=== PATIENT | male | born 1985 | race African-American/Black ===

== ENCOUNTER 2017-10-19 15:30 | Emergency (ER) | payer OTHER ==
--- NOTE | 2017-10-19 15:46 | PDOC ---
Rapid Medical Evaluation Time Seen by Provider: 10/19/17 15:40 Medical Evaluation: Allergies Allergy/AdvReac Type Severity Reaction Status Date / Time No Known Allergies Allergy Verified 10/19/17 15:40 10/19/17 15:40 The patient presents with a chief complaint of: L lower abdominal pain for a week. Sitting makes the pain worse. 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 No fevers/ chills. Denies n/v/d, however notices increased bowel movements. Denies blood in the stool. Feels like a shooting pain that radiates to the back. I have performed a brief in-person evaluation of this patient; Pertinent physical exam findings: ambulatory, in no respiratory distress. TTP LLQ. Abdomen otherwise soft, non-distended with no rebound or guarding I have ordered the following: CBC, CMP, PT/INR, Lipase The patient will proceed to the ED for further evaluation.
[2017-10-19 15:47] VITALS: BMI 23.0
[2017-10-19] MEDS ORDERED: IBUPROFEN 600 MG TABLET (FP) PO ONE ×2 (16:24→16:36)
--- NOTE | 2017-10-19 16:27 | PDOC ---
History of Present Illness - General History Source: Patient Exam Limitations: No Limitations - History of Present Illness Initial Comments: 10/19/17 18:59 The patient is a 31 year old male with no significant PMH who presents to the emergency department with LLQ pain for approximately 1 week. The patient describes the LLQ pain as intermittent, sharp, lasting for seconds at a time, with radiation to the L lower back and worse with sudden movement or driving. The patient denies exacerbation of LLQ pain after food intake. The patient states he plays basketball and typically gets groin pain but denies groin pain today. The patient denies family Hx of kidney stones. The patient denies abdominal surgeries in the past. The patient reports he has not taken any pain meds. The patient denies groin pain, testicular pain, chest pain, shortness of breath , headache and dizziness. Denies fever, chills, nausea, vomit, diarrhea and constipation. Denies dysuria, frequency, urgency and hematuria. Allergies: NKA Past surgical history: None reported. Social history: No reported alcohol, drug or cigarette use. PCP: Dr. Webb <Dariana Gomez - Last Filed: 10/19/17 18:58> <Immanuel Kelly - Last Filed: 10/21/17 05:14> - General Chief Complaint: Pain Stated Complaint: ABDOMINAL PAIN Time Seen by Provider: 10/19/17 15:40 Past History <Dariana Gomez - Last Filed: 10/19/17 18:58> - Past Medical History COPD: No Disorders: Yes (? renal problem) Other medical history: DENIES. - Surgical History Abdominal Surgery: Yes (HERNIA) - Immunization History Immunization Up to Date: Yes - Suicide/Smoking/Psychosocial Hx Smoking Status: No Smoking History: Never smoked Number of Cigarettes Smoked Daily: 0 Hx Alcohol Use: No Drug/Substance Use Hx: No <Immanuel Kelly - Last Filed: 10/21/17 05:14> - Past Medical History Allergies/Adverse Reactions: Allergies Allergy/AdvReac Type Severity Reaction Status Date / Time No Known Allergies Allergy Verified 10/19/17 15:40 Home Medications: Ambulatory Orders No Home Medications 0 dose .ROUTE UTDICT 04/30/12 Doxycycline Monohydrate [Doxycycline] 100 mg PO BID #20 tablet 10/24/12 Naproxen [Naprosyn -] 500 mg PO BID #14 tablet 10/24/12 Acetaminophen [Tylenol] 650 mg PO Q4H PRN #20 tablet 08/08/16 Ondansetron HCl [Zofran] 4 mg PO Q6H PRN #15 tablet 08/08/16 Ranitidine HCl [Zantac] 150 mg PO BID PRN #14 tablet 08/08/16 Review of Systems - Review of Systems Able to Perform ROS?: Yes Comments:: 10/19/17 18:59 CONSTITUTIONAL: No reported: Fever, Chills, Diaphoresis, Generalized Weakness, Malaise, Loss of Appetite HEENT: No reported: Rhinorrhea, Nasal Congestion, Throat Pain, Throat Swelling, Difficulty Swallowing, Mouth Swelling, Ear Pain, Eye Pain, Visual Changes CARDIOVASCULAR: No reported: Chest Pain, Syncope, Palpitations, Irregular Heart Rate, Lightheadedness, Peripheral Edema RESPIRATORY: No reported: Cough, Shortness of Breath, SOB with Exertion, Orthopnea, Wheezing , Stridor, Hemoptysis GASTROINTESTINAL: Reported: (+) LLQ pain. No reported: Abdominal Distension, Nausea, Vomiting, Diarrhea, Constipation, Melena, Hematochezia GENITOURINARY: No reported: Dysuria, Frequency, Urgency, Hesitancy, Flank Pain, Genital Pain MUSCULOSKELETAL: No reported: Myalgia, Arthralgia, Joint Swelling, Back pain, Neck Pain SKIN: No reported: Rash, Itching, Pallor HEMEATOLOGIC/IMMUNOLOGIC: No reported: Easy Bleeding, Easy Bruising, Lymphadenopathy, Frequent infections ENDOCRINE: No reported: Unexplained Weight Gain, Unexplained Weight Loss, Heat Intolerance , Cold Intolerance NEUROLOGIC: No reported: Headache, Focal Weakness, Paresthesias, Vertigo, Lightheadedness, Unsteady Gait, Seizure, Mental Status Changes, Incontinence PSYCHIATRIC: No reported: Anxiety, Depression <Dariana Gomez - Last Filed: 10/19/17 18:58> *Physical Exam - Vital Signs Last Vital Signs Temp Pulse Resp BP Pulse Ox 98.3 F 58 L 19 150/87 100 10/19/17 15:40 10/19/17 15:40 10/19/17 15:40 10/19/17 15:40 10/19/17 15:40 - Physical Exam Comments: 10/19/17 18:59 GENERAL: The patient is awake, alert, and fully oriented, Nontoxic - in no acute distress. HEAD: Normocephalic, atraumatic. EYES: extraocular movements intact, sclera anicteric, conjunctiva clear. ENT: Normal voice, Moist mucous membranes. NECK: Normal range of motion, supple LUNGS: Breath sounds equal, clear to auscultation bilaterally. No wheezes, no rhonchi, no rales. HEART: Regular rate and rhythm, without murmur, rub or gallop. ABDOMEN: Soft, nontender, normoactive bowel sounds. No guarding, no rebound.No CVA tenderness EXTREMITIES: Normal range of motion, no edema. No clubbing or cyanosis. No cords, erythema, or tenderness. NEUROLOGICAL: No facial assymetry, Normal speech, PSYCH: Normal mood, normal affect. SKIN: Warm, Dry, normal turgor <Dariana Gomez - Last Filed: 10/19/17 18:58> - Vital Signs Last Vital Signs Temp Pulse Resp BP Pulse Ox 98.3 F 58 L 19 150/87 100 10/19/17 15:40 10/19/17 15:40 10/19/17 15:40 10/19/17 15:40 10/19/17 15:40 <Leticia,Immanuel - Last Filed: 10/21/17 05:14> ED Treatment Course - LABORATORY CBC & Chemistry Diagram: 10/19/17 16:10 10/19/17 16:10 - ADDITIONAL ORDERS Additional order review: Laboratory Results 10/19/17 10/19/17 10/19/17 16:13 16:10 16:10 PT with INR 10.50 INR 0.93 Sodium 140 Potassium 4.0 Chloride 104 Carbon Dioxide 27 Anion Gap 9 BUN 18 Creatinine 1.1 Creat Clearance w eGFR > 60 Random Glucose 107 H D Calcium 8.9 Total Bilirubin 0.3 D AST 39 H D ALT 32 D Alkaline Phosphatase 55 Total Protein 7.9 Albumin 4.1 Lipase Urine Color Straw Urine Appearance Clear Urine pH 6.0 Ur Specific [place] 1.018 Urine Protein Negative Urine Glucose (UA) Negative Urine Ketones Negative Urine Blood Negative Urine Nitrite Negative Urine Bilirubin Negative Urine Urobilinogen Negative Ur Leukocyte Esterase Negative 10/19/17 16:00 PT with INR INR Sodium Potassium Chloride Carbon Dioxide Anion Gap BUN Creatinine Creat Clearance w eGFR Random Glucose Calcium Total Bilirubin AST ALT Alkaline Phosphatase Total Protein Albumin Lipase 168 Urine Color Urine Appearance Urine pH Ur Specific [place] Urine Protein Urine Glucose (UA) Urine Ketones Urine Blood Urine Nitrite Urine Bilirubin Urine Urobilinogen Ur Leukocyte Esterase 10/19/17 16:10 RBC 4.69 MCV 92.1 MCHC 34.6 RDW 13.3 MPV 9.6 Neutrophils % 66.2 D Lymphocytes % 26.4 D Monocytes % 6.3 Eosinophils % 0.7 Basophils % 0.4 D - Medications Given in the ED: ED Medications Discontinued Medications Generic Name Dose Route Start Last Admin Trade Name Evgeny PRN Reason Stop Dose Admin Ibuprofen 600 mg 10/19/17 16:24 10/19/17 16:42 Motrin - PO 10/19/17 16:25 600 mg ONCE ONE Administration <Dariana Gomez - Last Filed: 10/19/17 18:58> - LABORATORY CBC & Chemistry Diagram: 10/19/17 16:10 10/19/17 16:10 <Immanuel Kelly - Last Filed: 10/21/17 05:14> Medical Decision Making - Medical Decision Making 10/19/17 16:25 31y M no significant past medical problems presenting with a complaint of intermittent left lower quadrant pain 1 week, the pain is sharp, intermittent lasting for seconds at a time before resolving without any associated fever, chills, nausea, vomiting, urinary symptoms, diarrhea. The patient does note that sometimes he gets worse when he is moving around or driving. The patient states he plays a lot of basketball. no radiation to groin. On exam the patient appears well, has a soft nontender abdomen with no CVA tenderness. Differential for the patient's symptoms includes possible muscle skeletal pain versus kidney stones No signs or symptoms suggestive of testicular torsion Will obtain blood work, UA motrin for pain A portion of this note was documented by scribe services under my direction. I have reviewed the details of the note, within reason, and agree with the documentation with the following case summary and management plan written by me 10/19/17 19:05 labs reviewed neg ua neg pt feeling improved suspect likely msk in nature will dc with pmd fu and supportive care reutrn precautions were discussed I discussed the physical exam findings, ancillary test results and final diagnoses with the patient. I answered all of the patient's questions. The patient was satisfied with the care received and felt comfortable with the discharge plan and treatment plan. The patient will call their primary care physician within 24 hours to arrange follow-up and will return to the Emergency Department with any new, persistent or worsening symptoms. <Immanuel Kelly - Last Filed: 10/21/17 05:14> *DC/Admit/Observation/Transfer - Attestations Scribe Attestion: 10/19/17 18:59 Documentation prepared by Dariana Gomez, acting as medical sales associate for Immanuel Kelly MD. <Dariana Gomez - Last Filed: 10/19/17 18:58> - Discharge Dispostion Admit: No <Immanuel Kelly - Last Filed: 10/21/17 05:14> Diagnosis at time of Disposition: Flank pain - Discharge Dispostion Disposition: HOME Condition at time of disposition: Improved - Referrals Referrals: Lux Webb [Primary Care Provider] - - Patient Instructions Printed Discharge Instructions: DI for Flank Pain Additional Instructions: Return to the emergency department immediately with ANY new, persistent or worsening symptoms including worsening abdominal pain, fevers, inability to tolerate oral intake, chest pain, shortness of breath or any other concerns. I suspect that you're pain may be due to muscle strain take Motrin or Tylenol as needed. Avoid any sports or physical activity until is feeling better Stay well hydrated. You MUST call and follow up with your doctor tomorrow. Your emergency department visit is not complete without a followup with your doctor for reevaluation. Please make sure your doctor reviews the results of your emergency evaluation. Print Language: ALBANIAN - Post Discharge Activity
[2017-10-19 16:37] LABS: BASO % 0.4 % (0-2.0); EOS % 0.7 % (0-4.5); HEMATOCRIT 43.2 % (35.4-49); LYMPH % 26.4 % (8-40); MCH 31.9 pg (25.7-33.7); MCHC 34.6 g/dl (32.0-35.9); MEAN CELL VOLUME 92.1 fl (80-96); MEAN PLT VOLUME 9.6 fl (7.5-11.1); MONO % 6.3 % (3.8-10.2); NEUT % 66.2 % (42.8-82.8); PLATELET COUNT 184 K/MM3 (134-434); RBC 4.69 M/mm3 (4.00-5.60); RDW 13.3 % (11.9-15.9); WHITE BLOOD COUNT 7.2 K/mm3 (4.0-10.0)
[2017-10-19 16:48] LABS: URINE APPEARANCE CLEAR; URINE BILIRUBIN NEGATIVE (<2.0 mg/dL); URINE BLOOD NEGATIVE (NEGATIVE); URINE COLOR STRAW; URINE GLUCOSE (UA) NEGATIVE (NEGATIVE); URINE KETONE NEGATIVE (NEGATIVE); URINE LEUK ESTERASE NEGATIVE (NEGATIVE); URINE NITRITE NEGATIVE (NEGATIVE); URINE PROTEIN NEGATIVE (NEGATIVE); URINE UROBILINOGEN NEGATIVE mg/dL (0.2-1.0)
[2017-10-19 17:09] LABS: INR 0.93 (0.82-1.09); PROTHROMBIN TIME (PATIENT) 10.5 SEC (9.98-11.88)
[2017-10-19 18:25] LABS: ALBUMIN 4.1 g/dl (3.4-5.0); ANION GAP 9 (8-16); BLOOD UREA NITROGEN 18 mg/dL (7-18); CALCIUM 8.9 mg/dL (8.5-10.1); CHLORIDE 104 mmol/L (98-107); CO2 27 mmol/L (21-32); CREATININE 1.1 mg/dL (0.7-1.3); GLUCOSE,RANDOM 107 mg/dL (74-106); SGOT/AST 39 U/L (15-37); SODIUM 140 mmol/L (136-145)
[2017-10-19 18:29] LABS: ALK PHOS 55 U/L (45-117); BILIRUBIN,TOTAL 0.3 mg/dL (0.2-1.0); SGPT/ALT 32 U/L (12-78); TOT PROT 7.9 g/dl (6.4-8.2)
[2017-10-19 19:14] VITALS: BP 126/78; PULSE 72; TEMP 98.4
== END 2017-10-19 19:05 | disposition home or self-care (01) ==
LOC: JER 15:30
DX: R10.32 Left lower quadrant pain (principal)
CPT/HCPCS: 36415; 80053; 81003; 83690; 85025; 85610; 87086; 99284-25

== ENCOUNTER 2018-09-06 08:04 | Emergency (ER) | payer OTHER ==
[2018-09-06 08:28] VITALS: BMI 23.7
--- NOTE | 2018-09-06 08:46 | PDOC ---
History of Present Illness - General History Source: Patient Exam Limitations: No Limitations <Marialuisa Summers - Last Filed: 09/06/18 12:21> <Maria Isabel Arriola - Last Filed: 09/08/18 22:44> - General Chief Complaint: Pain, Acute Stated Complaint: LF SIDE SWOLLEN GROIN Time Seen by Provider: 09/06/18 08:28 Past History - Past Medical History COPD: No Disorders: Yes (? renal problem) - Surgical History Abdominal Surgery: Yes (HERNIA) - Immunization History Immunization Up to Date: Yes - Suicide/Smoking/Psychosocial Hx Smoking Status: No Smoking History: Never smoked Number of Cigarettes Smoked Daily: 0 Information on smoking cessation initiated: No Hx Alcohol Use: No Drug/Substance Use Hx: No <Marialuisa Summers - Last Filed: 09/06/18 12:21> <Maria Isabel Arriola - Last Filed: 09/08/18 22:44> - Past Medical History Allergies/Adverse Reactions: Allergies Allergy/AdvReac Type Severity Reaction Status Date / Time No Known Allergies Allergy Verified 10/19/17 15:40 Home Medications: Ambulatory Orders No Home Medications 0 dose .ROUTE UTDICT 04/30/12 Doxycycline Monohydrate [Doxycycline] 100 mg PO BID #20 tablet 10/24/12 Naproxen [Naprosyn -] 500 mg PO BID #14 tablet 10/24/12 Acetaminophen [Tylenol] 650 mg PO Q4H PRN #20 tablet 08/08/16 Ondansetron HCl [Zofran] 4 mg PO Q6H PRN #15 tablet 08/08/16 Ranitidine HCl [Zantac] 150 mg PO BID PRN #14 tablet 08/08/16 *Physical Exam - Vital Signs Last Vital Signs Temp Pulse Resp BP Pulse Ox 98.5 F 65 16 138/81 99 09/06/18 08:25 09/06/18 08:25 09/06/18 08:25 09/06/18 08:25 09/06/18 08:25 - Physical Exam General Appearance: No: Apparent Distress Gastrointestinal/Abdominal: positive: Normal Bowel Sounds, Soft. negative: Tender, Distended, Guarding, Rebound Male Genitalia: positive: other (+L inguinal lymphadenopathy, no erythema, no rashes or other lesions noted). negative: discharge, testicular tenderness, testicular mass, epididymus tender, hernia Integumentary: positive: Normal Color Neurologic: positive: Alert, Normal Mood/Affect <Marialuisa Summers - Last Filed: 09/06/18 12:21> - Vital Signs Last Vital Signs Temp Pulse Resp BP Pulse Ox 98.5 F 65 16 138/81 99 09/06/18 08:25 09/06/18 08:25 09/06/18 08:25 09/06/18 08:25 09/06/18 08:25 <Maria Isabel Arriola - Last Filed: 09/08/18 22:44> Moderate Sedation - Procedure Monitoring Vital Signs: Procedure Monitoring Vital Signs Temperature 98.5 F 09/06/18 08:25 Pulse Rate 65 09/06/18 08:25 Respiratory Rate 16 09/06/18 08:25 Blood Pressure 138/81 09/06/18 08:25 O2 Sat by Pulse Oximetry (%) 99 09/06/18 08:25 <Marialuisa Summers - Last Filed: 09/06/18 12:21> - Procedure Monitoring Vital Signs: Procedure Monitoring Vital Signs Temperature 98.5 F 09/06/18 08:25 Pulse Rate 65 09/06/18 08:25 Respiratory Rate 16 09/06/18 08:25 Blood Pressure 138/81 09/06/18 08:25 O2 Sat by Pulse Oximetry (%) 99 09/06/18 08:25 <Maria Isabel Arriola - Last Filed: 09/08/18 22:44> ED Treatment Course - ADDITIONAL ORDERS Additional order review: Laboratory Results 09/06/18 09:24 Urine Color Ltyellow Urine Appearance Clear Urine pH 6.0 Ur Specific [place] 1.024 Urine Protein Negative Urine Glucose (UA) Negative Urine Ketones Negative Urine Blood Negative Urine Nitrite Negative Urine Bilirubin Negative Urine Urobilinogen 2.0 Ur Leukocyte Esterase Negative <Maria Isabel Arriola - Last Filed: 09/08/18 22:44> Medical Decision Making - Medical Decision Making 32 y/o M hx of L inguinal hernia s/p mesh (around 10 years ago) presents with swollen lymph nodes along left side of groin x 1.5 weeks. Mentions around 3 weeks ago, he had "bump" to penis for which he was seen at [facility]. He had full STD workup at that time which was negative; mentions being placed on ?antibiotics and now the bump has healed. Is sexually active with 1 partner for the past 5 months. Denies hx of STDs. Denies fever, abd pain, n/v, testicular pain, penile discharge, dysuria, other rashes to genital region Unilateral inguinal lymphadenopathy Consider STD? Plan: GC test, RPR, HIV, UA 09/06/18 08:46 Patient neg for syphilis and HIV UA negative Ultrasound confirms lymphadenopathy Patient mentions finishing course of Doxycline Patient also covered with Ceftriaxone and Flagyl Advised f/u with his PCP Stable for dc 09/06/18 12:21 <Marialuisa Summers - Last Filed: 09/06/18 12:21> - Medical Decision Making The patient was seen and evaluated in conjunction with midlevel provider under my direct supervision, ancillary studies were reviewed. I agree with the plan as outlined by Marialuisa Summers. HPI, workup/dispo as outlined. VS wnl. of note, pt has had left groin adenopathy and pain x 1 week; previously seen at [facility] ~2 weeks ago for left scrotal lesions, suspected to be infectious and placed on doxycycline x 2 weeks, almost done. +sexually active no urethral drainage. no testicular tenderness. normal lie. abdomen soft and nontender. +left groin mobile and tender inguinal LAD; inguinal hernia surg scar present. normal penis, no ulcers or lesions already finishing doxycycline. considering Chlamydia, gonorrhea, HIV, syphilis, lymph-gran venerem and STI - extend coverage with IM Ceftriaxone x1 and flagyl. Ultrasound soft tissue_confirms groin adenpathy. however, no scrotal or testicular abnormalities on exam to warrant US> DC with PCP followup, safe sex practices, finish the medications and the one time dose of meds here. pt made aware of impression and plan, agreeable 09/06/18 10:54 09/08/18 22:44 <Maria Isabel Arriola - Last Filed: 09/08/18 22:44> *DC/Admit/Observation/Transfer - Discharge Dispostion Decision to Admit order: No <Marialuisa Summers - Last Filed: 09/06/18 12:21> <Maria Isabel Arriola - Last Filed: 09/08/18 22:44> Diagnosis at time of Disposition: Inguinal lymphadenopathy - Discharge Dispostion Disposition: HOME - Referrals Referrals: Lux Webb [Primary Care Provider] - 2 Days - Patient Instructions Printed Discharge Instructions: DI for Lymphadenopathy Additional Instructions: Thank you for choosing [facility]. It was a pleasure taking care of you. The cause of the swollen lymph nodes along your groin is unclear You were treated here to covered for possible STD You will be called back regarding results of your testing Please refrain from intercourse until results come back Have partners tested as well Follow-up with your PCP in 2-3 days. Return to the Emergency Department if your symptoms worsen or persist or have other concerning symptoms.
[2018-09-06 09:36] LABS: URINE APPEARANCE CLEAR; URINE BILIRUBIN NEGATIVE (<2.0 mg/dL); URINE COLOR LTYELLOW; URINE GLUCOSE (UA) NEGATIVE (NEGATIVE); URINE KETONE NEGATIVE (NEGATIVE); URINE LEUK ESTERASE NEGATIVE (NEGATIVE); URINE NITRITE NEGATIVE (NEGATIVE); URINE PROTEIN NEGATIVE (NEGATIVE)
[2018-09-06] MEDS ORDERED: metroNIDAZOLE 250 MG TABLET PO ONE ×2 (11:31→12:18)
[2018-09-06] MEDS ORDERED: cefTRIAXone SODIUM 1 GM VIAL ONE (12:33)
[2018-09-06] MEDS ORDERED: metroNIDAZOLE 250 MG TABLET ONE ×2 (12:34→12:42)
[2018-09-06 12:38] VITALS: BP 133/69; PULSE 55; TEMP 98.3
== END 2018-09-06 12:37 | disposition home or self-care (01) ==
LOC: JER 08:04
DX: R59.0 Localized enlarged lymph nodes (principal); R19.04 Left lower quadrant abdominal swelling, mass and lump; Z87.438 Personal history of other diseases of male genital organs
CPT/HCPCS: 36415; 76882-TC-RT-FY; 81003; 86593; 87389; 87491; 87591; 99281-25

== ENCOUNTER 2024-05-20 15:52 | Emergency (ER) | payer OTHER ==
[2024-05-20 16:15] VITALS: BP 148/86; PULSE 64; RESP 18; TEMP 99.1; BMI 23.1
[2024-05-20] MEDS ORDERED: ACETAMINOPHEN 325 MG TABLET (FP) ONE (16:17)
[2024-05-20] MEDS: ACETAMINOPHEN 325 MG TABLET (FP) PO ONE (16:20)
== END 2024-05-20 18:01 | disposition home or self-care (01) ==
LOC: FER 15:52
DX: M25.561 Pain in right knee (principal)
CPT/HCPCS: 73562-TC-RT-FY; 99283-25